=== PATIENT | female | born 1995 | race African-American/Black ===

== ENCOUNTER 2018-08-19 09:28 | Emergency (ER) | payer OTHER ==
[~2018-08-19] VITALS: Ht 167.6 cm; Wt 102.1 kg
--- NOTE | 2018-08-19 09:40 | NUR ---
ED Nurse Note: Pt came into the ER with complaints of diarrhea since yesterday. she has had 7 episodes yesterday and 3 episodes today. Pt states that the last thing she ate was the day before yesterday and it was salad and [employer] in the Box. Denies nausea, vomiting, or pain. A + O x4. Ambulatory. Skin warm to touch.
[2018-08-19 09:42] VITALS: BP 132/78
--- NOTE | 2018-08-19 09:57 | Emergency Room Report ---
History of Present Illness General Chief Complaint: Diarrhea Source: Patient Present Illness HPI Patient presents with complaints of several episodes of diarrhea since yesterday Reports that prior to that she had a salad and also ate a [id number] she also reports that several people work have been ill with stomach bug Denies any chest pain or abdominal pain had some very minimal cramping during diarrhea Subjective fevers Denies any chest pain denies any neck pain denies any recent travel Denies any blood in the stool Allergies: Coded Allergies: No Known Allergies (Unverified , 08/19/18) Patient History Past Medical History: see triage record Pertinent Family History: none Last Menstrual Period: 08/07/18 Reviewed Nursing Documentation: PMH: Agreed; PSxH: Agreed Nursing Documentation-PMH Past Medical History: No Stated History Review of Systems All Other Systems: negative except mentioned in HPI Physical Exam Vital Signs Date Time Temp Pulse Resp B/P (MAP) Pulse Ox O2 Delivery O2 Flow Rate FiO2 08/19/18 09:30 98.1 102 18 126/82 100 Room Air Sp02 EP Interpretation: reviewed, normal General Appearance: well appearing, no apparent distress Head: normocephalic, atraumatic Eyes: bilateral eye PERRL, bilateral eye EOMI ENT: hearing grossly normal, normal pharynx, TMs + canals normal, uvula midline Neck: full range of motion, supple, no meningismus, no bony tend Respiratory: lungs clear, normal breath sounds, no rhonchi, no respiratory distress, no retraction, no accessory muscle use Cardiovascular #1: normal peripheral pulses, regular rate, rhythm, no edema, no gallop, no JVD, no murmur Gastrointestinal: normal bowel sounds, non tender, soft, no mass, no organomegaly, non-distended, no guarding, no hernia, no pulsatile mass, no rebound Genitourinary: no CVA tenderness Musculoskeletal: normal inspection Neurologic: oriented x3, responsive, 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, motor strength/ tone normal, sensory intact Psychiatric: mood/affect normal Skin: normal color, no rash, warm/dry, palpation normal Lymphatic: normal inspection, no adenopathy Medical Decision Making Diagnostic Impression: Primary Impression: Diarrhea ER Course Given the patient's history and exam There appears to be likely some consideration for infectious pathology patient has a soft abdomen and therefore further imaging study was not obtained initial blood work showed a white blood cell count that is minimally low otherwise no acute pathology is Revealed patient remained stable tolerating oral intake well and is stable for initial conservative outpatient trial Labs Test 08/19/18 10:00 White Blood Count 3.8 K/UL (4.8-10.8) Red Blood Count 4.70 M/UL (4.20-5.40) Hemoglobin 13.3 G/DL (12.0-16.0) Hematocrit 40.7 % (37.0-47.0) Mean Corpuscular Volume 86 FL (80-99) Mean Corpuscular Hemoglobin 28.3 PG (27.0-31.0) Mean Corpuscular Hemoglobin Concent 32.7 G/DL (32.0-36.0) Red Cell Distribution Width 12.1 % (11.6-14.8) Platelet Count 297 K/UL (150-450) Mean Platelet Volume 6.2 FL (6.5-10.1) Neutrophils (%) (Auto) 65.7 % (45.0-75.0) Lymphocytes (%) (Auto) 21.0 % (20.0-45.0) Monocytes (%) (Auto) 11.2 % (1.0-10.0) Eosinophils (%) (Auto) 0.2 % (0.0-3.0) Basophils (%) (Auto) 1.9 % (0.0-2.0) Urine Color Yellow Urine Appearance Clear Urine pH 5 (4.5-8.0) Urine Specific [place] 1.025 (1.005-1.035) Urine Protein 2+ (NEGATIVE) Urine Glucose (UA) Negative (NEGATIVE) Urine Ketones 1+ (NEGATIVE) Urine Blood 5+ (NEGATIVE) Urine Nitrite Negative (NEGATIVE) Urine Bilirubin Negative (NEGATIVE) Urine Urobilinogen Normal MG/DL (0.0-1.0) Urine Leukocyte Esterase 1+ (NEGATIVE) Urine RBC 10-15 /HPF (0 - 2) Urine WBC 2-4 /HPF (0 - 2) Urine Squamous Epithelial Cells Few /LPF (NONE/OCC) Urine Bacteria Few /HPF (NONE) Urine Mucus Moderate /LPF (NONE/OCC) Urine HCG, Qualitative Negative (NEGATIVE) Sodium Level 139 MMOL/L (136-145) Potassium Level 3.4 MMOL/L (3.5-5.1) Chloride Level 104 MMOL/L (98-107) Carbon Dioxide Level 23 MMOL/L (21-32) Anion Gap 12 mmol/L (5-15) Blood Urea Nitrogen 7 mg/dL (7-18) Creatinine 0.8 MG/DL (0.55-1.30) Estimat Glomerular Filtration Rate > 60 mL/min (>60) Glucose Level 96 MG/DL (74-106) Calcium Level 9.4 MG/DL (8.5-10.1) Total Bilirubin 0.7 MG/DL (0.2-1.0) Aspartate Amino Transf (AST/SGOT) 16 U/L (15-37) Alanine Aminotransferase (ALT/SGPT) 24 U/L (12-78) Alkaline Phosphatase 60 U/L (46-116) Total Protein 8.2 G/DL (6.4-8.2) Albumin 3.7 G/DL (3.4-5.0) Globulin 4.5 g/dL Albumin/Globulin Ratio 0.8 (1.0-2.7) Lipase 50 U/L (73-393) Last Vital Signs Date Time Temp Pulse Resp B/P (MAP) Pulse Ox O2 Delivery O2 Flow Rate FiO2 08/19/18 09:42 98.4 100 26 132/78 100 Room Air Status: improved Disposition: HOME, SELF-CARE Condition: Improved Scripts No Active Prescriptions or Reported Meds Additional Instructions: Patient is provided with the discharge instructions notified to follow up with primary doctor in the next 2-3 days otherwise return to the er with any worsening symptoms. Please note that this report is being documented using eÇift technology. This can lead to erroneous entry secondary to incorrect interpretation by the dictating instrument. Jie Thayer DO Aug 19, 2018 09:57
--- NOTE | 2018-08-19 10:09 | NUR ---
ED Nurse Note: Blood and urine has been collected. Sent to lab. Awaiting results.
[2018-08-19 10:20] LABS: APPEARANCE,URINE CLEAR; BILIRUBIN, URINE NEGATIVE (NEGATIVE); GLUCOSE, URINE (UA) NEGATIVE (NEGATIVE); KETONES,URINE 1+ (NEGATIVE); LEUKOCYTE ESTERASE ,URINE 1+ (NEGATIVE); NITRITE,URINE NEGATIVE (NEGATIVE); PH,URINE 5 (4.5-8.0); PROTEIN,URINE 2+ (NEGATIVE); UROBILINOGEN,URINE NORMAL MG/DL (0.0-1.0)
[2018-08-19 10:23] LABS: BASOPHILS % (AUTO) 1.9 % (0.0-2.0); EOSINOPHILS % (AUTO) 0.2 % (0.0-3.0); HEMATOCRIT 40.7 % (37.0-47.0); HEMOGLOBIN 13.3 G/DL (12.0-16.0); MEAN CORPUSCULAR VOLUME 86 FL (80-99); MONOCYTES % (AUTO) 11.2 % (1.0-10.0); NEUTROPHILS % (AUTO) 65.7 % (45.0-75.0); PLATELET COUNT 297 K/UL (150-450); RED CELL DISTRIBUTION WIDTH 12.1 % (11.6-14.8); WHITE BLOOD COUNT 3.8 K/UL (4.8-10.8)
--- NOTE | 2018-08-19 10:27 | NUR ---
ED Nurse Note: Was notified by EMT Jannet that hcg neg.
[2018-08-19 10:30] LABS: COLOR,URINE YELLOW
[2018-08-19 10:36] LABS: ANION GAP 12 mmol/L (5-15); BLOOD UREA NITROGEN 7 mg/dL (7-18); CALCIUM 9.4 MG/DL (8.5-10.1); CARBON DIOXIDE 23 MMOL/L (21-32); CHLORIDE 104 MMOL/L (98-107); CREATININE 0.8 MG/DL (0.55-1.30); POTASSIUM 3.4 MMOL/L (3.5-5.1); SODIUM 139 MMOL/L (136-145)
[2018-08-19 10:40] LABS: ALANINE AMINOTRANSFERASE 24 U/L (12-78); ALBUMIN 3.7 G/DL (3.4-5.0); ALBUMIN/GLOBULIN RATIO 0.8 (1.0-2.7); ALKALINE PHOSPHATASE 60 U/L (46-116); ASPARTATE AMINO TRANSFERASE 16 U/L (15-37); BILIRUBIN,TOTAL 0.7 MG/DL (0.2-1.0)
[2018-08-19 11:47] VITALS: BP 120/83
--- NOTE | 2018-08-19 12:17 | NUR ---
ED Nurse Note: PT LAYING PEACEFULLY IN BED IN NAD. AOX4. PRESCRIPTIONS AND DISCHARGE PAPERWORK EXPLAINED TO PT. PT VERBALIZES UNDERSTANDING AND ALL QUESTIONS WERE ANSWERED. PRESCRIPTIONS AND DISCHARGE PAPERWORK GIVEN TO PT, IV AND ID WRISTBAND REMOVED. PT WALKED OUT OF ER WITH STEADY GAIT AND ALL BELONGINGS.
[2018-08-19 12:18] VITALS: BP 120/83
== END 2018-08-19 12:17 | disposition home or self-care (01) ==
LOC: EMR 09:59
DX: R19.7 Diarrhea, unspecified (principal)
CPT/HCPCS: 36415; 80053; 81003; 81025; 83690; 85025; 99283

== ENCOUNTER 2019-01-23 22:38 | Emergency (ER) | payer OTHER ==
[~2019-01-23] VITALS: Ht 167.6 cm; Wt 104.3 kg
--- NOTE | 2019-01-23 23:04 | NUR ---
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 noted reddened rash throughout face and upper body, noted temp 101.4, sinus tach on director of cardiac cath lab. no sx resp distress noted at this time, will cont monitor and wait for further orders.
[2019-01-23 23:09] VITALS: BP 134/86
[2019-01-23] MEDS ORDERED: Acetaminophen 500mg (ES) tab ORAL ONE (23:30)
--- NOTE | 2019-01-23 23:49 | NUR ---
ED Nurse Note: blood specimen sent to lab.
[2019-01-23 23:56] LABS: HEMATOCRIT 37.9 % (37.0-47.0); MEAN CORPUSCULAR VOLUME 83 FL (80-99); PLATELET COUNT 239 K/UL (150-450); RED BLOOD COUNT 4.58 M/UL (4.20-5.40); RED CELL DISTRIBUTION WIDTH 11.6 % (11.6-14.8); WHITE BLOOD COUNT 2.6 K/UL (4.8-10.8)
[2019-01-24 00:07] LABS: ANION GAP 9 mmol/L (5-15); BLOOD UREA NITROGEN 9 mg/dL (7-18); CALCIUM 9.2 MG/DL (8.5-10.1); CARBON DIOXIDE 24 MMOL/L (21-32); CHLORIDE 106 MMOL/L (98-107); CREATININE 0.8 MG/DL (0.55-1.30); POTASSIUM 3.7 MMOL/L (3.5-5.1); SODIUM 139 MMOL/L (136-145)
[2019-01-24 00:09] VITALS: BP 126/86
[2019-01-24 00:11] LABS: ALANINE AMINOTRANSFERASE 36 U/L (12-78); ALBUMIN 3.6 G/DL (3.4-5.0); ALBUMIN/GLOBULIN RATIO 0.8 (1.0-2.7); ALKALINE PHOSPHATASE 56 U/L (46-116); ASPARTATE AMINO TRANSFERASE 23 U/L (15-37); BILIRUBIN,TOTAL 0.4 MG/DL (0.2-1.0)
[2019-01-24] MEDS ORDERED: ACYCLOVIR800 MG ORAL (01:18)
--- NOTE | 2019-01-24 01:34 | NUR ---
ED Nurse Note: pt cleared to be d/c per ERMD, pt discharge and aftercare instruction provided w/ prescription, pt education done via discussion and handout, pt advised to follow up with pcp or return to ed if changes in condition, pt verbalized understanding and agrees with plan, vss, ambulatory w/ steady gait, iv d/c and id band removed, pt left w/ all belongings accompanied by father.
[2019-01-24 01:35] VITALS: BP 127/76
--- NOTE | 2019-01-24 04:02 | Emergency Room Report ---
History of Present Illness General Chief Complaint: General Complaint Source: Patient Present Illness HPI 23-year-old female presents ED for evaluation. Complaining of a rash and fever x1 week. States that she works at a [employer] and is exposed patient with shingles. States that she was not exposed to chickenpox as a child, and did not receive the varicella vaccine. States the rash is itchy. Denies pain. Denies runny nose cough or congestion. Febrile in triage. States she otherwise has been vaccinated. No other aggravating relieving factors. Denies any other associated symptoms Allergies: Coded Allergies: No Known Allergies (Unverified , 08/19/18) Patient History Past Medical History: none Past Surgical History: none Pertinent Family History: none Social History: Denies: smoking, alcohol use, drug use Last Menstrual Period: 12/22 Now: No Immunizations: UTD Reviewed Nursing Documentation: PMH: Agreed; PSxH: Agreed Nursing Documentation-PMH Past Medical History: No Stated History Review of Systems All Other Systems: negative except mentioned in HPI Physical Exam Vital Signs Date Time Temp Pulse Resp B/P (MAP) Pulse Ox O2 Delivery O2 Flow Rate FiO2 01/23/19 22:39 100.2 130 18 151/87 (108) 98 Room Air Sp02 EP Interpretation: reviewed, normal General Appearance: no apparent distress, alert, GCS 15, non-toxic Head: normocephalic, atraumatic Eyes: bilateral eye normal inspection, bilateral eye PERRL ENT: hearing grossly normal, normal pharynx, no angioedema, normal voice Neck: full range of motion, supple/symm/no masses Respiratory: chest non-tender, lungs clear, normal breath sounds, speaking full sentences Cardiovascular #1: regular rate, rhythm, no edema Cardiovascular #2: 2+ carotid (R), 2+ carotid (L), 2+ radial (R), 2+ radial (L) , 2+ dorsalis pedis (R), 2+ dorsalis pedis (L) Gastrointestinal: normal bowel sounds, non tender, soft, non-distended, no guarding, no rebound Rectal: deferred Genitourinary: normal inspection, no CVA tenderness Musculoskeletal: back normal, gait/station normal, normal range of motion, non- tender Neurologic: alert, oriented x3, responsive, motor strength/tone normal, sensory intact, speech normal Psychiatric: judgement/insight normal, memory normal, mood/affect normal, no suicidal/homicidal ideation Reflexes: 3+ bicep (R), 3+ bicep (L), 3+ tricep (R), 3+ tricep (L), 3+ knee (R) , 3+ knee (L) Skin: normal color, warm/dry, well hydrated, other - erythematous vesicular single papules noted to chest, face, arms. nonerythematous base Lymphatic: no adenopathy Medical Decision Making Diagnostic Impression: Primary Impression: Chicken pox Qualified Codes: B01.9 - Varicella without complication ER Course Hospital Course 23-year-old female presents to ED with rash, fever Differential diagnoses include: measles, shingles, viral exanthema Clinical course Patient placed on stretcher. After initial history, physical exam reveals a young female in no acute distress. On exam there is a vesicular papular rash noted to chest, arms, face. None erythematous base. Crosses midline. I ordered labs, Tylenol, IV fluids, chest x-ray labsno leukocytosis, hemoglobin/hematocrit stable, electrolytes okay, lactate okay Chest x-rayno consolidation or infiltrate Discussed findings with patient. Rash not centripetal it does not appear like measles. Given history of exposure to patient which shingles without exposure to chickenpox as a child likely this is varicella but not herpes zoster. Nontoxic-appearing. patient is otherwise immunocompetent. Given acyclovir here. And will discharge with acyclovir. Contact precautions given. Safe for discharge for close outpatient follow-up. Will provide referrals diagnosischickenpox stable and discharge to home with prescription for acyclovir. Follow-up with PMD. Return to ED if symptoms recur or worsen Labs Test 01/23/19 23:35 White Blood Count 2.6 K/UL (4.8-10.8) Red Blood Count 4.58 M/UL (4.20-5.40) Hemoglobin 13.0 G/DL (12.0-16.0) Hematocrit 37.9 % (37.0-47.0) Mean Corpuscular Volume 83 FL (80-99) Mean Corpuscular Hemoglobin 28.4 PG (27.0-31.0) Mean Corpuscular Hemoglobin Concent 34.3 G/DL (32.0-36.0) Red Cell Distribution Width 11.6 % (11.6-14.8) Platelet Count 239 K/UL (150-450) Mean Platelet Volume 6.1 FL (6.5-10.1) Neutrophils (%) (Auto) % (45.0-75.0) Lymphocytes (%) (Auto) % (20.0-45.0) Monocytes (%) (Auto) % (1.0-10.0) Eosinophils (%) (Auto) % (0.0-3.0) Basophils (%) (Auto) % (0.0-2.0) Sodium Level 139 MMOL/L (136-145) Potassium Level 3.7 MMOL/L (3.5-5.1) Chloride Level 106 MMOL/L (98-107) Carbon Dioxide Level 24 MMOL/L (21-32) Anion Gap 9 mmol/L (5-15) Blood Urea Nitrogen 9 mg/dL (7-18) Creatinine 0.8 MG/DL (0.55-1.30) Estimat Glomerular Filtration Rate > 60 mL/min (>60) Glucose Level 100 MG/DL (74-106) Lactic Acid Level 0.90 mmol/L (0.4-2.0) Calcium Level 9.2 MG/DL (8.5-10.1) Total Bilirubin 0.4 MG/DL (0.2-1.0) Aspartate Amino Transf (AST/SGOT) 23 U/L (15-37) Alanine Aminotransferase (ALT/SGPT) 36 U/L (12-78) Alkaline Phosphatase 56 U/L (46-116) Total Protein 7.9 G/DL (6.4-8.2) Albumin 3.6 G/DL (3.4-5.0) Globulin 4.3 g/dL Albumin/Globulin Ratio 0.8 (1.0-2.7) Chest X-Ray Diagnostic Results Chest X-Ray Diagnostic Results : Chest X-Ray Ordered: Yes # of Views/Limited/Complete: 1 View Indication: Other EP Interpretation: Yes Interpretation: no consolidation, no effusion, no pneumothorax, no acute cardiopulmonary disease Impression: No acute disease Electronically Signed by: Electronically signed by José Miguel Diallo MD Last Vital Signs Date Time Temp Pulse Resp B/P (MAP) Pulse Ox O2 Delivery O2 Flow Rate FiO2 01/24/19 01:35 98.9 98 18 127/76 100 Room Air Status: improved Disposition: HOME, SELF-CARE Condition: Stable Scripts Acyclovir* (ZOVIRAX*) 800 Mg Tablet 800 MG ORAL QID for 5 Days, TAB Prov: José Miguel Diallo MD 01/24/19 Referrals: [facility] Patient Instructions: Airborne Precautions, [id number] José Miguel Diallo MD Jan 24, 2019 04:02
--- NOTE | 2019-01-24 08:09 | Diagnostic Imaging Report ---
Indication: Cough Technique: XRAY Chest 1v Comparison: None Findings: Heart size within the upper limits for normal for AP technique. Mediastinal contours are sharp. There is no focal airspace consolidation, pneumothorax or pleural effusion. Osseous structures demonstrate no acute abnormality. Impression: No radiographic evidence of acute cardiopulmonary disease. Specifically, no focal airspace consolidation as questioned clinically
[2019-01-25] MEDS ORDERED: LIDOCAINE VISC100 ML ORAL (15:59)
[2019-01-25] MEDS ORDERED: IBUPROFEN600 MG ORAL (15:59)
== END 2019-01-24 01:30 | disposition home or self-care (01) ==
LOC: EMR 23:00
DX: B01.9 Varicella without complication (principal); R50.9 Fever, unspecified
CPT/HCPCS: 36415; 71045; 80053; 83605; 85025; 96360; 99284

== ENCOUNTER 2019-01-25 15:18 | Emergency (ER) | payer OTHER ==
[~2019-01-25] VITALS: Ht 167.6 cm; Wt 104.3 kg
[~2019-01-25 15:18] MED LIST: ACYCLOVIR800 MG ORAL
[2019-01-25 15:40] VITALS: BP 133/90
--- NOTE | 2019-01-25 15:40 | NUR ---
ED Nurse Note: pt walked in c/o fever and rash, pt states she was in the ed couple days ago for chicken pox, reports generalized body ache, sore throat, rash. noted fever 102.6 in triage, rash throught facial and generalized body with reddened circular area and blisters. noted tachycardia, no sx resp distress at this time. pt ambulates w/ steady gait, will cont monitor.
[2019-01-25] MEDS ORDERED: LIDOCAINE VISC100 ML ORAL (15:59)
[2019-01-25] MEDS ORDERED: IBUPROFEN600 MG ORAL (15:59)
[2019-01-25] MEDS ORDERED: Acetaminophen 500mg (ES) tab ORAL ONE (16:00)
[2019-01-25] MEDS ORDERED: Lidocaine 2% Visc 15ml soln ORAL ONE (16:00)
--- NOTE | 2019-01-25 16:07 | NUR ---
ED Nurse Note: pt cleared to be d/c per ERMD, pt discharge and aftercare instruction provided w/ prescription, pt education done via discussion and handout, pt advised to follow up with pcp or return to ed if changes in condition, pt verbalized understanding and agrees with plan, vss, ambulatory w/ steady gait, left w/ all belongings.
[2019-01-25 16:08] VITALS: BP 133/90
--- NOTE | 2019-01-25 17:27 | Emergency Room Report ---
History of Present Illness General Chief Complaint: Fever Source: Patient Present Illness HPI Patient is a 23-year-old female presented after fever. Patient recent diagnosis of chickenpox. Patient denies any severe headache or cough. She reports having some continued sore throat. Patient had recent been prescribed acyclovir. Patient states that she had onset of symptoms approximate 3 days ago. Patient had been having fever up to 102 degrees. She denies any vomiting or diarrhea. She had recently had a negative test. Allergies: Coded Allergies: No Known Allergies (Unverified , 08/19/18) Patient History Past Medical History: see triage record Last Menstrual Period: 12/22/18 Reviewed Nursing Documentation: PMH: Agreed; PSxH: Agreed Nursing Documentation-PMH Past Medical History: No Stated History Review of Systems All Other Systems: negative except mentioned in HPI Physical Exam Vital Signs Date Time Temp Pulse Resp B/P (MAP) Pulse Ox O2 Delivery O2 Flow Rate FiO2 01/25/19 15:28 102.6 119 18 133/90 (104) 97 Room Air General Appearance: well appearing, no apparent distress, alert, GCS 15 Head: normocephalic, atraumatic Eyes: bilateral eye other - nystagmus ENT: hearing grossly normal, normal voice Neck: supple, other - lymphadenopathy Respiratory: normal inspection, no respiratory distress, speaking full sentences Cardiovascular #1: normal inspection Gastrointestinal: normal inspection Neurologic: normal inspection, alert, oriented x3, responsive, 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 Patient presented for skin rash. Differential diagnosis include was not limited to chickenpox, molluscum contagiosum among others. Patient has a benign exam and does not appear to require any further imaging or laboratory testing at this time. Patient appears to be well-hydrated. She was given antipyretics as well as viscous lidocaine. She denies any respiratory symptoms. Patient is advised to follow-up with her primary care physician for recheck and to return if she had worsening headache productive cough or other concerns Last Vital Signs Date Time Temp Pulse Resp B/P (MAP) Pulse Ox O2 Delivery O2 Flow Rate FiO2 01/25/19 16:08 102.6 118 18 133/90 97 Room Air Status: improved Disposition: HOME, SELF-CARE Condition: Stable Scripts Ibuprofen* (MOTRIN*) 600 Mg Tablet 600 MG ORAL Q8H PRN for For Pain, #30 TAB 0 Refills Prov: Valentino Barajas MD 01/25/19 Lidocaine HCl 2% Viscous (Lidocaine HCl 2% Viscous) 100 Ml Solution 15 ML ORAL QID, #120 ML Prov: Valentino Barajas MD 01/25/19 Referrals: CLAUDE GUERRA,REFERRING (PCP) Patient Instructions: Chickenpox, Adult Valentino Barajas MD Jan 25, 2019 17:27
== END 2019-01-25 16:08 | disposition home or self-care (01) ==
LOC: EMR 15:43
DX: B01.9 Varicella without complication (principal)
CPT/HCPCS: 99283

== ENCOUNTER 2020-09-09 20:20 | Emergency (ER) | payer OTHER ==
[~2020-09-09] VITALS: Ht 167.6 cm; Wt 113.4 kg
[~2020-09-09 20:20] MED LIST changes: +IBUPROFEN600 MG ORAL; +LIDOCAINE VISC100 ML ORAL
--- NOTE | 2020-09-09 21:00 | NUR ---
ED Nurse Note: Patient came in the ED c/o of lower back pain, radiating down the legs, bilat. Patient reports pain started two weeks ago while getting hair braided for 8 hours. Pain fluctuates in intensity. mostly 5/10. Today patient took Motrin 600 mg 5.
[2020-09-09 21:06] VITALS: BP 143/85
--- NOTE | 2020-09-09 21:07 | Emergency Room Report ---
History of Present Illness General Chief Complaint: Pain Source: Patient Present Illness HPI This is a 25-year-old female with no significant past medical history. She presents with urinary bilateral leg pain. 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 She woke up today with pain going down her legs. She is worried that she may have a blood clot. Denies any leg swelling. not on control pill. No nausea no vomiting pain no fever chills but no incontinence of bowel or urine. No anesthesia. Worse with movement. Better with rest. Allergies: Coded Allergies: No Known Allergies (Unverified , 08/19/18) COVID-19 Screening Contact w/high risk pt: No Experienced COVID-19 symptoms?: No COVID-19 Testing performed PEDIATRIC PHYSICAL THERAPIST: No Patient History Past Medical History: see triage record, old chart reviewed Past Surgical History: none Pertinent Family History: none Social History: Denies: smoking Last Menstrual Period: 08-10-2020 Now: No Immunizations: other Reviewed Nursing Documentation: PMH: Agreed; PSxH: Agreed Nursing Documentation-PMH Past Medical History: No Stated History Review of Systems Eye: Denies: eye pain, blurred vision ENT: Denies: ear pain, nose congestion, throat swelling Respiratory: Denies: cough, shortness of breath Cardiovascular: Denies: chest pain, palpitations Gastrointestinal: Denies: abdominal pain, diarrhea, nausea, vomiting Musculoskeletal: Reports: back pain; Denies: joint pain Skin: Denies: rash Neurological: Denies: headache, numbness Endocrine: Denies: increased thirst, increased urine Hematologic/Lymphatic: Denies: easy bruising All Other Systems: negative except mentioned in HPI Physical Exam Vital Signs Date Time Temp Pulse Resp B/P (MAP) Pulse Ox O2 Delivery O2 Flow Rate FiO2 09/09/20 20:49 98.2 95 18 143/85 (104) 97 Room Air Vitals normal Sp02 EP Interpretation: reviewed, normal General Appearance: well appearing, no apparent distress, alert Head: normocephalic, atraumatic Eyes: bilateral eye PERRL, bilateral eye EOMI ENT: hearing grossly normal, normal pharynx Neck: full range of motion, supple, no meningismus Respiratory: chest non-tender, lungs clear, normal breath sounds Cardiovascular #1: regular rate, rhythm, no murmur Gastrointestinal: normal bowel sounds, non tender, no mass, no organomegaly, no bruit, non-distended Musculoskeletal: back normal, normal range of motion, gait/station normal, other - Mild tenderness to the lower lumbar/sacral area. Psychiatric: mood/affect normal Medical Decision Making Diagnostic Impression: Primary Impression: Low back pain Qualified Codes: M54.42 - Lumbago with sciatica, left side; M54.41 - Lumbago with sciatica, right side ER Course Patient presents with back pain/sciatica/sacroiliitis. No evidence of cauda equina syndrome, spinal rib abscess or neoplastic process. No evidence of DVT. Last Vital Signs Date Time Temp Pulse Resp B/P (MAP) Pulse Ox O2 Delivery O2 Flow Rate FiO2 09/09/20 20:49 98.2 95 18 143/85 (104) 97 Room Air Status: unchanged Disposition: HOME, SELF-CARE Condition: Stable Scripts Prednisone* (PREDNISONE*) 20 Mg Tablet 40 MG ORAL DAILY, #10 TAB Prov: Siddhartha Blackburn MD 09/09/20 Additional Instructions: Followup with your doctor in 7 days but return if symptoms worsen. Siddhartha Blackburn MD Sep 09, 2020 21:07
[2020-09-09] MEDS ORDERED: PREDNISONE20 MG ORAL (21:13)
--- NOTE | 2020-09-09 21:17 | NUR ---
ER DISCHARGE NOTE: Patient is cleared to be discharged per ERMD, pt is aox4, on room air, with stable vital signs. pt was given dc and prescription instructions, pt was able to verbalize understanding, pt id band removed w pt is able to ambulate with steady gait.
== END 2020-09-09 21:17 | disposition home or self-care (01) ==
LOC: EMR 21:05
DX: M54.42 Lumbago with sciatica, left side (principal); M54.41 Lumbago with sciatica, right side
CPT/HCPCS: 99282